=== PATIENT | female | born 1965 | race African-American/Black ===

== ENCOUNTER 2016-10-15 09:14 | Emergency (ER) | payer SELFPAY ==
[~2016-10-15] VITALS: Ht 162.6 cm; Wt 110.0 kg
[2016-10-15 09:19] VITALS: BP 164/94
== END 2016-10-15 12:10 | disposition home or self-care (01) ==
LOC: ER 09:20
DX: S05.02XA Injury of conjunctiva and corneal abrasion without foreign body, left eye, initial encounter (principal); S05.01XA Injury of conjunctiva and corneal abrasion without foreign body, right eye, initial encounter; Y93.89 Activity, other specified; Y04.2XXA Assault by strike against or bumped into by another person, initial encounter; Y92.811 Bus as the place of occurrence of the external cause; R03.0 Elevated blood-pressure reading, without diagnosis of hypertension
CPT/HCPCS: 99283